=== PATIENT | male | born 1995 ===

== ENCOUNTER 2022-04-14 01:07 | Emergency (ER) | payer OTHER ==
[2022-04-14] MEDS ORDERED: AMOX TR-K CLV1 EAC4 PO (02:52)
== END 2022-04-14 02:51 | disposition home or self-care (01) ==
LOC: ER1 01:07
DX: S51.852A Open bite of left forearm, initial encounter (principal); S61.552A Open bite of left wrist, initial encounter; W55.01XA Bitten by cat, initial encounter
CPT/HCPCS: 73090; 99283